=== PATIENT | male | born 1980 | race African-American/Black ===

== ENCOUNTER 2018-01-31 16:41 | Emergency (ER) | payer OTHER ==
[~2018-01-31] VITALS: Ht 172.7 cm; Wt 105.2 kg
[2018-01-31] MEDS ORDERED: HORMONE REPLACEMENT PO (16:52)
[2018-01-31] MEDS ORDERED: LISINOPRIL10 MG PO (16:52)
[2018-01-31 17:36] LABS: ABSOLUTE BASOPHILS 0.1 thou/uL (0.0-0.2); ABSOLUTE EOSINOPHILS 0.1 thou/uL (0.0-0.7); ABSOLUTE LYMPHOCYTES 2.2 thou/uL (0.8-5.3); ABSOLUTE MONOCYTES 0.7 thou/uL (0.0-1.2); BASOPHILS 0.9 %; EOSINOPHILS 1.7 %; HEMATOCRIT 48.5 % (42.0-52.0); HEMOGLOBIN 16.4 gm/dL (14.0-18.0); LYMPHOCYTES 26.8 %; MCH 32.6 pg (26.0-34.0); MCHC 33.8 g/dL (28.0-37.0); MCV 96.5 fL (80.0-100.0); MONOCYTES 9.2 %; NUCLEATED RBCS 0 /100WBC; PLATELET COUNT* 325 thou/uL (150-400); POLYS 61.4 %; RBC 5.03 mil/uL (4.50-6.00); RDW-CV 14.2 % (10.5-14.5); WBC 8.1 thou/uL (4.0-11.0)
[2018-01-31 17:46] LABS: ANION GAP 12 mmol/L (7-16); BUN 13 mg/dL (7-18); CALCIUM 9.1 mg/dL (8.5-10.1); CHLORIDE 100 mmol/L (98-107); CO2 25 mmol/L (21-32); CREATININE 1.4 mg/dL (0.6-1.3); GLUCOSE 141 mg/dL (70-99); SODIUM 137 mmol/L (136-145)
[2018-01-31 17:47] LABS: POTASSIUM 2.9 mmol/L (3.5-5.1)
[2018-01-31 17:53] LABS: ALBUMIN 4.4 g/dL (3.4-5.0); ALKALINE PHOSPHATASE 55 U/L (46-116); SGOT 46 U/L (15-37); SGPT 28 U/L (30-65); TOTAL BILIRUBIN 1.3 mg/dL (<0.1-1.0); TOTAL PROTEIN 8.3 g/dL (6.4-8.2); TROPONIN-I LEVEL <0.06 ng/mL (<0.06)
[2018-01-31 18:48] LABS: URINE BILIRUBIN NEGATIVE (Negative); URINE BLOOD NEGATIVE (Negative); URINE CLARITY CLEAR; URINE COLOR YELLOW; URINE GLUCOSE-RANDOM NEGATIVE (Negative); URINE KETONES 2+ (Negative); URINE LEUKOCYTES NEGATIVE (Negative); URINE NITRITE NEGATIVE (Negative); URINE PROTEIN NEGATIVE (Negative); URINE UROBILINOGEN 0.2 E.U./dl (0.2-1.0)
[2018-01-31] MEDS ORDERED: ZOFRAN ODT4 MG PO (19:30)
[2018-01-31 19:45] VITALS: BP 137/90
--- NOTE | 2018-02-01 12:56 | EKG ---
[place] [address] ELECTROCARDIOGRAM REPORT Name: BENJAMIN PEREZ Room: [facility]#: [id number] Admission: 01/31/18 Attend Phys: Discharge: 01/31/18 Date of : 80 Report #: [id number] THIS REPORT FOR: //name// [facility] ED Test Date: 2018-01-31 Test Time: 17:38:11 Pat Name: BENJAMIN PEREZ Department: Room: Gender: M Nurse School: [employer] : 1980 Requested By: Zuleima Dominguez Order Number: [id number] MD: Jose C Painting Measurements Intervals Sunshine Rate: 81 P: AK: QRS: 33 QRSD: 86 T: -31 QT: 383 QTc: 445 Interpretive Statements Atrial fibrillation Abnormal R-wave progression, early transition Borderline T abnormalities, inferior leads No previous ECG available for comparison Electronically Signed On 02-01-2018 12:56:00 CDT by Jose C Painting [email or web address] <ELECTRONICALLY SIGNED> By: Jose C Painting MD, [facility] 02/01/18 [id number] 1738 Jose C Painting MD, FACC /EPI
== END 2018-01-31 19:45 | disposition home or self-care (01) ==
LOC: M.ERS 16:41
PROVIDERS: Physician Assistant Surgical
DX: R11.2 Nausea with vomiting, unspecified (principal); R53.1 Weakness; R07.89 Other chest pain; R42 Dizziness and giddiness; I10 Essential (primary) hypertension

== ENCOUNTER 2021-02-15 19:29 | Emergency (ER) | payer OTHER ==
[~2021-02-15] VITALS: Ht 177.8 cm; Wt 99.8 kg
[~2021-02-15 19:29] MED LIST: HORMONE REPLACEMENT PO; LISINOPRIL10 MG PO; ZOFRAN ODT4 MG PO
[2021-02-15] MEDS ORDERED: CEPHALEXIN500 MG PO (20:34)
[2021-02-15 21:37] VITALS: BP 144/74
== END 2021-02-15 21:37 | disposition home or self-care (01) ==
LOC: M.ERS 19:29
DX: S61.210A Laceration without foreign body of right index finger without damage to nail, initial encounter (principal); I10 Essential (primary) hypertension; Z86.018 Personal history of other benign neoplasm; Z79.899 Other long term (current) drug therapy; W23.0XXA Caught, crushed, jammed, or pinched between moving objects, initial encounter; Y93.61 Activity, american tackle football; Y92.89 Other specified places as the place of occurrence of the external cause; Y99.8 Other external cause status